=== PATIENT | female | born 1965 | race Caucasian/White ===

== ENCOUNTER 2017-11-08 17:25 | Inpatient (IN) | payer BC ==
[~2017-11-08] VITALS: Ht 162.6 cm; Wt 108.0 kg
[2017-11-08 18:20] LABS: BASOPHIL (%) 0.1 % (0-1); EOSINOPHIL (%) 0.6 % (0-5); EOSINOPHIL COUNT 0.1 K/uL (0-0.3); HEMATOCRIT 15.1 % (36.0-46.0); IMMATURE GRANULOCYTE (%) 0.9 % (0.0-0.7); LYMPHOCYTE (%) 11.4 % (15-42); LYMPHOCYTE COUNT 1.9 K/uL (1.0-2.8); MCH 14.3 PG (29.0-34.0); MCHC 23.8 G/DL (30.0-36.0); MCV 60.2 FL (83-99); MONOCYTE (%) 6.2 % (3-12); NEUTROPHIL (%) 80.8 % (45-76); NEUTROPHIL COUNT 13.2 K/uL (1.8-6.4); NRBC (%) 0.6 /100 WBC (0-0); PLATELET COUNT 893 K/uL (156-360); RBC DIS.WIDTH-CV 20.6 % (11.8-14.6); RBC DIS.WIDTH-SD 42.9 % (39-53); RED BLOOD COUNT 2.51 M/uL (3.80-5.20); WHITE BLOOD COUNT 16.3 K/uL (4.1-10.2)
[2017-11-08 18:21] LABS: HEMOGLOBIN 3.6 G/DL (11.9-15.5)
[2017-11-08 18:28] LABS: ALBUMIN 3.6 g/dL (3.2-4.8); CHLORIDE 105 mEq/L (99-109); POTASSIUM 4.3 mEq/L (3.7-5.4); SODIUM 139 mEq/L (136-147)
[2017-11-08 18:31] LABS: GLUCOSE 104 mg/dL (70-99); TOTAL PROTEIN 6.6 g/dL (6.4-8.3)
[2017-11-08 18:33] LABS: TOTAL BILIRUBIN 0.5 mg/dL (0.0-1.0)
[2017-11-08 18:34] LABS: ALKALINE PHOSPHATASE 89 IU/L (3-129)
[2017-11-08 18:35] LABS: CREATININE 0.8 mg/dL (0.6-1.3)
[2017-11-08 18:36] LABS: AST (GOT) 9 IU/L (2-34); UREA NITROGEN (BUN) 14 mg/dL (9-23)
[2017-11-08 18:38] LABS: ALT (GPT) 6 IU/L (3-49)
[2017-11-08 18:40] LABS: TROP-I INTERPRETATION NEGATIVE; TROPONIN-I < 0.01 ng/mL (0.0-0.30)
[2017-11-08 18:48] LABS: GFR ESTIMATE (CALCULATED) > 59 mL/min/
[2017-11-08] MEDS ORDERED: BAYER PLUS 500500 MG PO (18:55)
[2017-11-08] MEDS ORDERED: CENTRUM SILVER1 EAC4 PO (18:56)
[2017-11-08] MEDS ORDERED: CYANOCOBALAM1000 MCG PO (18:57)
[2017-11-08 20:18] VITALS: BP 94/54
[2017-11-08 20:37] VITALS: BP 116/70
[2017-11-08 21:22] VITALS: BP 130/71
[2017-11-08 22:22] VITALS: BP 125/70
[2017-11-09] VITALS (15 sets, daily range): BP systolic 97–136; BP diastolic 42–96
[2017-11-09 00:24] LABS: APPEARANCE CLEAR ((CLEAR)); BILIRUBIN NEGATIVE; BLOOD NEGATIVE; COLOR YELLOW ((YELLOW)); GLUCOSE (STRIP) NEGATIVE; KETONES NEGATIVE; LEUKOCYTES NEGATIVE; NITRITE NEGATIVE; PROTEIN (STRIP) NEGATIVE; UROBILINOGEN 0.2 MG/DL (0.2-1.0)
[2017-11-09 06:40] LABS: CHLORIDE 106 mEq/L (99-109); SODIUM 136 mEq/L (136-147)
[2017-11-09 06:41] LABS: POTASSIUM 3.4 mEq/L (3.7-5.4)
[2017-11-09 06:42] LABS: GLUCOSE 98 mg/dL (70-99); HEMATOCRIT 19.3 % (36.0-46.0)
[2017-11-09 06:43] LABS: HEMOGLOBIN 5.8 G/DL (11.9-15.5); MCV 68.2 FL (83-99)
[2017-11-09 06:46] LABS: CREATININE 0.6 mg/dL (0.6-1.3); GFR ESTIMATE (CALCULATED) > 59 mL/min/
[2017-11-09 06:47] LABS: UREA NITROGEN (BUN) 12 mg/dL (9-23)
[2017-11-09 07:06] LABS: IRON 300 MCG/DL (35-150)
[2017-11-09 07:52] LABS: THYROTROPIN (TSH) 2.3 MIU/L (0.4-5.5)
[2017-11-09 07:58] LABS: FERRITIN 15 NG/ML (10-291)
[2017-11-09 15:57] LABS: HEMATOCRIT 24.4 % (36.0-46.0); HEMOGLOBIN 7.6 G/DL (11.9-15.5); MCV 71.1 FL (83-99)
[2017-11-09 21:53] LABS: HEMATOCRIT 23.5 % (36.0-46.0); HEMOGLOBIN 7.5 G/DL (11.9-15.5); MCV 70.4 FL (83-99); NRBC (%) 1.8 /100 WBC (0-0); RBC DIS.WIDTH-CV 26.5 % (11.8-14.6); WHITE BLOOD COUNT 14.9 K/uL (4.1-10.2)
[2017-11-09 21:58] LABS: MCH 22.5 PG (29.0-34.0); MCHC 31.9 G/DL (30.0-36.0); RED BLOOD COUNT 3.34 M/uL (3.80-5.20)
[2017-11-09 22:29] LABS: ANISOCYTOSIS 2+; BASOPHIL (%) 0.4 % (0-1); BASOPHIL COUNT 0.1 K/uL (0-0.1); EOSINOPHIL (%) 1.1 % (0-5); EOSINOPHIL COUNT 0.2 K/uL (0-0.3); HYPOCHROMASIA 1+; IMMATURE GRANULOCYTE (%) 1.5 % (0.0-0.7); LYMPHOCYTE (%) 15.6 % (15-42); LYMPHOCYTE COUNT 2.3 K/uL (1.0-2.8); MICROCYTOSIS 2+; MONOCYTE COUNT 1.2 K/uL (0-0.8); NEUTROPHIL (%) 73.4 % (45-76); NEUTROPHIL COUNT 10.9 K/uL (1.8-6.4); PLAT.SUFFICIENCY INCREASED; PLATELET COUNT 667 K/uL (156-360); POIKILOCYTOSIS 1+; POLYCHROMASIA 3+; TEAR DROP CELLS 1+
[2017-11-10 00:50] LABS: HEMATOCRIT 23.5 % (36.0-46.0); HEMOGLOBIN 7.3 G/DL (11.9-15.5)
[2017-11-10 05:35] VITALS: BP 113/67
[2017-11-10 06:46] LABS: BASOPHIL (%) 0.6 % (0-1); BASOPHIL COUNT 0.1 K/uL (0-0.1); EOSINOPHIL COUNT 0.3 K/uL (0-0.3); HEMATOCRIT 25.4 % (36.0-46.0); HEMOGLOBIN 7.6 G/DL (11.9-15.5); IMMATURE GRANULOCYTE (%) 1.7 % (0.0-0.7); INTER. NORMALIZED RATIO 1.3; LYMPHOCYTE (%) 12.2 % (15-42); LYMPHOCYTE COUNT 1.7 K/uL (1.0-2.8); MCH 21.7 PG (29.0-34.0); MCHC 29.9 G/DL (30.0-36.0); MCV 72.6 FL (83-99); MONOCYTE (%) 7.4 % (3-12); MONOCYTE COUNT 1.1 K/uL (0-0.8); NEUTROPHIL (%) 76.1 % (45-76); NEUTROPHIL COUNT 10.8 K/uL (1.8-6.4); NRBC (%) 1.2 /100 WBC (0-0); PLATELET COUNT 652 K/uL (156-360); RBC DIS.WIDTH-SD 67.6 % (39-53); WHITE BLOOD COUNT 14.2 K/uL (4.1-10.2)
[2017-11-10 06:48] LABS: PTT 26.9 SEC (25-37)
[2017-11-10 07:00] LABS: CHLORIDE 105 MEQ/L (99-109); CREATININE 0.5 MG/DL (0.6-1.3); GFR ESTIMATE (CALCULATED) > 59 mL/min/; GLUCOSE 91 mg/dL (70-99); POTASSIUM 3.6 MEQ/L (3.7-5.4); SODIUM 140 MEQ/L (136-147); UREA NITROGEN (BUN) 5 mg/dL (9-23)
[2017-11-10 07:25] VITALS: BP 118/57; BP 118/587
[2017-11-10 14:45] VITALS: BP 120/59
[2017-11-10 19:25] VITALS: BP 107/59
[2017-11-11] VITALS (15 sets, daily range): BP systolic 102–137; BP diastolic 53–67
[2017-11-11 05:39] LABS: BASOPHIL (%) 0.5 % (0-1); BASOPHIL COUNT 0.1 K/uL (0-0.1); EOSINOPHIL (%) 1.8 % (0-5); EOSINOPHIL COUNT 0.2 K/uL (0-0.3); HEMATOCRIT 25.8 % (36.0-46.0); HEMOGLOBIN 7.5 G/DL (11.9-15.5); IMMATURE GRANULOCYTE (%) 0.7 % (0.0-0.7); LYMPHOCYTE (%) 12.1 % (15-42); LYMPHOCYTE COUNT 1.5 K/uL (1.0-2.8); MCH 21.7 PG (29.0-34.0); MCHC 29.1 G/DL (30.0-36.0); MCV 74.8 FL (83-99); MONOCYTE (%) 7.9 % (3-12); NEUTROPHIL COUNT 9.4 K/uL (1.8-6.4); NRBC (%) 0.9 /100 WBC (0-0); PLATELET COUNT 650 K/uL (156-360); RED BLOOD COUNT 3.45 M/uL (3.80-5.20); WHITE BLOOD COUNT 12.3 K/uL (4.1-10.2)
[2017-11-11 05:42] LABS: ALBUMIN 2.8 G/DL (3.2-4.8); ALKALINE PHOSPHATASE 66 IU/L (3-129); ALT (GPT) 3 IU/L (3-49); AST (GOT) 11 IU/L (2-34); CHLORIDE 107 MEQ/L (99-109); CREATININE 0.5 MG/DL (0.6-1.3); GFR ESTIMATE (CALCULATED) > 59 mL/min/; GLUCOSE 85 mg/dL (70-99); POTASSIUM 3.9 MEQ/L (3.7-5.4); SODIUM 142 MEQ/L (136-147); TOTAL BILIRUBIN 0.7 MG/DL (0.0-1.0); TOTAL PROTEIN 5.4 G/DL (6.4-8.3); UREA NITROGEN (BUN) 3 mg/dL (9-23)
[2017-11-11 09:29] LABS: CARCINOEMBR.ANTIGEN 1.5 NG/ML
[2017-11-11 22:29] LABS: BASOPHIL (%) 0.4 % (0-1); BASOPHIL COUNT 0.1 K/uL (0-0.1); EOSINOPHIL COUNT 0.4 K/uL (0-0.3); HEMOGLOBIN 8.8 G/DL (11.9-15.5); IMMATURE GRANULOCYTE (%) 0.5 % (0.0-0.7); LYMPHOCYTE (%) 13.8 % (15-42); LYMPHOCYTE COUNT 1.6 K/uL (1.0-2.8); MCH 23.3 PG (29.0-34.0); MCHC 30.3 G/DL (30.0-36.0); MCV 76.7 FL (83-99); MONOCYTE (%) 6.9 % (3-12); MONOCYTE COUNT 0.8 K/uL (0-0.8); NEUTROPHIL (%) 75.4 % (45-76); NEUTROPHIL COUNT 8.7 K/uL (1.8-6.4); NRBC (%) 0.9 /100 WBC (0-0); PLATELET COUNT 580 K/uL (156-360); RBC DIS.WIDTH-CV 27.3 % (11.8-14.6); RED BLOOD COUNT 3.78 M/uL (3.80-5.20); WHITE BLOOD COUNT 11.6 K/uL (4.1-10.2)
[2017-11-12 00:53] VITALS: BP 129/91
[2017-11-12 04:17] VITALS: BP 120/65
[2017-11-12 06:35] LABS: INTER. NORMALIZED RATIO 1.4
[2017-11-12 06:40] LABS: BASOPHIL (%) 0.3 % (0-1); EOSINOPHIL (%) 3.2 % (0-5); EOSINOPHIL COUNT 0.4 K/uL (0-0.3); HEMATOCRIT 30.6 % (36.0-46.0); IMMATURE GRANULOCYTE (%) 0.8 % (0.0-0.7); LYMPHOCYTE (%) 10.9 % (15-42); LYMPHOCYTE COUNT 1.3 K/uL (1.0-2.8); MCHC 29.4 G/DL (30.0-36.0); MCV 78.1 FL (83-99); MONOCYTE (%) 7.1 % (3-12); MONOCYTE COUNT 0.9 K/uL (0-0.8); NEUTROPHIL (%) 77.7 % (45-76); NEUTROPHIL COUNT 9.5 K/uL (1.8-6.4); NRBC (%) 0.5 /100 WBC (0-0); PLATELET COUNT 592 K/uL (156-360); RBC DIS.WIDTH-CV 27.9 % (11.8-14.6); RBC DIS.WIDTH-SD 74.7 % (39-53); RED BLOOD COUNT 3.92 M/uL (3.80-5.20); WHITE BLOOD COUNT 12.3 K/uL (4.1-10.2)
[2017-11-12 06:46] LABS: PTT 47.7 SEC (25-37)
[2017-11-12 07:10] VITALS: BP 121/57
[2017-11-12 07:20] LABS: ALBUMIN 2.8 G/DL (3.2-4.8); ALKALINE PHOSPHATASE 73 IU/L (3-129); ALT (GPT) 5 IU/L (3-49); AST (GOT) 11 IU/L (2-34); CHLORIDE 106 MEQ/L (99-109); CREATININE 0.6 MG/DL (0.6-1.3); GFR ESTIMATE (CALCULATED) > 59 mL/min/; GLUCOSE 76 mg/dL (70-99); POTASSIUM 3.8 MEQ/L (3.7-5.4); SODIUM 139 MEQ/L (136-147); TOTAL PROTEIN 5.6 G/DL (6.4-8.3); UREA NITROGEN (BUN) 4 mg/dL (9-23)
[2017-11-12 07:21] LABS: TOTAL BILIRUBIN 0.5 MG/DL (0.0-1.0)
[2017-11-12 18:00] VITALS: BP 109/64
[2017-11-12 18:03] LABS: HEMATOCRIT 35.6 % (36.0-46.0); HEMOGLOBIN 10.9 G/DL (11.9-15.5); MCH 24.7 PG (29.0-34.0); MCHC 30.6 G/DL (30.0-36.0); MCV 80.5 FL (83-99); NRBC (%) 0.2 /100 WBC (0-0); RBC DIS.WIDTH-CV 26.8 % (11.8-14.6); RBC DIS.WIDTH-SD 73.6 % (39-53); RED BLOOD COUNT 4.42 M/uL (3.80-5.20); WHITE BLOOD COUNT 18.8 K/uL (4.1-10.2)
[2017-11-12 18:11] LABS: ALBUMIN 3.2 g/dL (3.2-4.8)
[2017-11-12 18:12] LABS: CHLORIDE 111 mEq/L (99-109); POTASSIUM 3.8 mEq/L (3.7-5.4); SODIUM 142 mEq/L (136-147)
[2017-11-12 18:14] LABS: GLUCOSE 87 mg/dL (70-99)
[2017-11-12 18:17] LABS: ALKALINE PHOSPHATASE 71 IU/L (3-129)
[2017-11-12 18:18] LABS: CREATININE 0.7 mg/dL (0.6-1.3); GFR ESTIMATE (CALCULATED) > 59 mL/min/
[2017-11-12 18:19] LABS: UREA NITROGEN (BUN) 3 mg/dL (9-23)
[2017-11-12 18:20] LABS: ALT (GPT) 6 IU/L (3-49)
[2017-11-12 18:25] LABS: AST (GOT) 15 IU/L (2-34); TOTAL BILIRUBIN 1.3 mg/dL (0.0-1.0)
[2017-11-12 18:55] LABS: PLAT.SUFFICIENCY INCREASED
[2017-11-12 19:22] LABS: PLATELET COUNT 409 K/uL (156-360)
[2017-11-12 23:17] VITALS: BP 123/68
[2017-11-13 03:54] VITALS: BP 123/64
[2017-11-13 06:38] LABS: BASOPHIL (%) 0.1 % (0-1); EOSINOPHIL (%) 0.1 % (0-5); HEMATOCRIT 34.3 % (36.0-46.0); HEMOGLOBIN 10.3 G/DL (11.9-15.5); IMMATURE GRANULOCYTE (%) 0.5 % (0.0-0.7); LYMPHOCYTE COUNT 0.9 K/uL (1.0-2.8); MCH 24.5 PG (29.0-34.0); MCV 81.5 FL (83-99); MONOCYTE (%) 2.6 % (3-12); MONOCYTE COUNT 0.4 K/uL (0-0.8); NEUTROPHIL (%) 91.7 % (45-76); NEUTROPHIL COUNT 15.5 K/uL (1.8-6.4); NRBC (%) 0.1 /100 WBC (0-0); PLATELET COUNT 513 K/uL (156-360); RBC DIS.WIDTH-SD 75.7 % (39-53); RED BLOOD COUNT 4.21 M/uL (3.80-5.20); WHITE BLOOD COUNT 16.9 K/uL (4.1-10.2)
[2017-11-13 07:07] LABS: CHLORIDE 107 MEQ/L (99-109); CREATININE 0.5 MG/DL (0.6-1.3); GFR ESTIMATE (CALCULATED) > 59 mL/min/; GLUCOSE 102 mg/dL (70-99); POTASSIUM 4.3 MEQ/L (3.7-5.4); SODIUM 142 MEQ/L (136-147); UREA NITROGEN (BUN) 4 mg/dL (9-23)
[2017-11-13 07:20] VITALS: BP 112/59
[2017-11-13 11:18] VITALS: BP 116/60
[2017-11-13 15:15] VITALS: BP 127/60
[2017-11-13 20:01] VITALS: BP 121/61
[2017-11-13 23:20] VITALS: BP 134/70
[2017-11-14 03:45] VITALS: BP 140/88
[2017-11-14 06:35] LABS: HEMATOCRIT 33.8 % (36.0-46.0); HEMOGLOBIN 10.1 G/DL (11.9-15.5); MCH 24.3 PG (29.0-34.0); MCHC 29.9 G/DL (30.0-36.0); MCV 81.3 FL (83-99); PLATELET COUNT 532 K/uL (156-360); RBC DIS.WIDTH-CV 27.7 % (11.8-14.6); RBC DIS.WIDTH-SD 77.7 % (39-53); RED BLOOD COUNT 4.16 M/uL (3.80-5.20); WHITE BLOOD COUNT 13.5 K/uL (4.1-10.2)
[2017-11-14 07:02] LABS: CHLORIDE 106 MEQ/L (99-109); CREATININE 0.5 MG/DL (0.6-1.3); GFR ESTIMATE (CALCULATED) > 59 mL/min/; GLUCOSE 87 mg/dL (70-99); POTASSIUM 3.8 MEQ/L (3.7-5.4); SODIUM 141 MEQ/L (136-147); UREA NITROGEN (BUN) 10 mg/dL (9-23)
[2017-11-14 07:19] VITALS: BP 135/85
[2017-11-14 16:42] VITALS: BP 145/75
[2017-11-14 20:25] VITALS: BP 119/72
[2017-11-15 00:55] VITALS: BP 143/82
[2017-11-15 06:13] LABS: HEMATOCRIT 33.2 % (36.0-46.0); HEMOGLOBIN 9.8 G/DL (11.9-15.5); MCH 24.1 PG (29.0-34.0); MCHC 29.5 G/DL (30.0-36.0); MCV 81.6 FL (83-99); PLATELET COUNT 476 K/uL (156-360); RBC DIS.WIDTH-CV 27.9 % (11.8-14.6); RBC DIS.WIDTH-SD 79.1 % (39-53); RED BLOOD COUNT 4.07 M/uL (3.80-5.20); WHITE BLOOD COUNT 8.7 K/uL (4.1-10.2)
[2017-11-15 06:40] LABS: CHLORIDE 108 MEQ/L (99-109); CREATININE 0.5 MG/DL (0.6-1.3); GFR ESTIMATE (CALCULATED) > 59 mL/min/; GLUCOSE 88 mg/dL (70-99); POTASSIUM 3.7 MEQ/L (3.7-5.4); SODIUM 145 MEQ/L (136-147); UREA NITROGEN (BUN) 5 mg/dL (9-23)
[2017-11-15 07:02] LABS: C-REACTIVE PROTEIN 98.4 MG/L (0-10)
[2017-11-15 08:13] VITALS: BP 134/83
[2017-11-15 15:30] VITALS: BP 145/69
[2017-11-15 23:13] VITALS: BP 134/76
[2017-11-16 06:03] LABS: HEMATOCRIT 34.7 % (36.0-46.0); HEMOGLOBIN 10.3 G/DL (11.9-15.5); MCH 24.2 PG (29.0-34.0); MCHC 29.7 G/DL (30.0-36.0); MCV 81.5 FL (83-99); PLATELET COUNT 507 K/uL (156-360); RBC DIS.WIDTH-CV 28.1 % (11.8-14.6); RBC DIS.WIDTH-SD 78.4 % (39-53); RED BLOOD COUNT 4.26 M/uL (3.80-5.20); WHITE BLOOD COUNT 6.8 K/uL (4.1-10.2)
[2017-11-16 06:26] LABS: CHLORIDE 105 MEQ/L (99-109); CREATININE 0.5 MG/DL (0.6-1.3); GFR ESTIMATE (CALCULATED) > 59 mL/min/; GLUCOSE 96 mg/dL (70-99); POTASSIUM 3.3 MEQ/L (3.7-5.4); SODIUM 143 MEQ/L (136-147); UREA NITROGEN (BUN) 4 mg/dL (9-23)
[2017-11-16 07:43] VITALS: BP 134/77
[2017-11-16] MEDS ORDERED: ELIQUIS5 MG PO (14:18)
[2017-11-16] MEDS ORDERED: PERCOCET 5/31 TABLET PO (16:18)
[2017-11-16 16:26] VITALS: BP 140/91
== END 2017-11-16 18:20 | disposition home or self-care (01) | DRG 329 ==
LOC: EME 17:25 → 4EAST 11-09 01:01 → EDOF 11-09 01:01 → ENRESERV 11-09 01:08 → 4EAST 11-09 07:51 → ENRESERV 11-10 14:30 → CANRESERV 11-10 14:30 → ENRESERV 11-10 15:34 → CANRESERV 11-10 16:14 → ENRESERV 11-11 11:58 → 5EAST 11-11 14:05 → ENRESERV 11-12 16:40 → CANRESERV 11-12 17:02 → ENRESERV 11-12 17:36 → CANRESERV 11-12 17:36 → ENRESERV 11-12 17:51 → CANRESERV 11-12 17:51 → ENPENDDIS 11-16 → 5EAST 11-16 18:20
PROVIDERS: Hospitalist; Internal Medicine Medical Oncology; Nurse Practitioner Family; Physician Assistant; Student in an Organized Health Care Education/Training Program
DX: C18.0 Malignant neoplasm of cecum (principal); I26.99 Other pulmonary embolism without acute cor pulmonale; D62 Acute posthemorrhagic anemia; E66.01 Morbid (severe) obesity due to excess calories; E87.6 Hypokalemia; K44.9 Diaphragmatic hernia without obstruction or gangrene; D12.4 Benign neoplasm of descending colon; K62.1 Rectal polyp; K64.8 Other hemorrhoids; K59.00 Constipation, unspecified; F17.210 Nicotine dependence, cigarettes, uncomplicated; T39.015A Adverse effect of aspirin, initial encounter; Z68.37 Body mass index [BMI] 37.0-37.9, adult; Z83.3 Family history of diabetes mellitus; Y92.098 Other place in other non-institutional residence as the place of occurrence of the external cause
CPT/HCPCS: 71275; 74177; 80048; 80053; 81003; 82378; 82607; 82728; 83540; 83605; 84443; 84484; 85014; 85018; 85025; 85025 91; 85027; 85379; 85610; 85730; 86140; 86850; 86900; 86901; 86920; 87040; 88305; 88341 TC; 88342 TC; 93005; 94799; 99281; 99285; C1753; C1769; J0131; J0690; J0744; J1100; J1170; J1644; J1650; J1756; J1940; J2250; J2270; J2405; J3010; J3480; J7030; J7050; P9016; P9045; Q0177; S0030; S0074